=== PATIENT | female | born 1930 | race Caucasian/White ===

== ENCOUNTER 2019-07-14 15:44 | Emergency (ER) | payer MEDICARE, OTHER ==
[~2019-07-14] VITALS: Ht 167.6 cm; Wt 56.8 kg
[2019-07-14 16:03] VITALS: BP 170/94
[2019-07-14] MEDS ORDERED: LIDODERM 5% PATC1 EA TP (16:55)
[2019-07-14 17:10] VITALS: PULSE 62; TEMP 98.2
== END 2019-07-14 17:20 | disposition home or self-care (01) ==
LOC: COL.ER 15:44
DX: S20.212A Contusion of left front wall of thorax, initial encounter (principal); W01.0XXA Fall on same level from slipping, tripping and stumbling without subsequent striking against object, initial encounter; Y92.002 Bathroom of unspecified non-institutional (private) residence as the place of occurrence of the external cause
CPT/HCPCS: A9284

== ENCOUNTER → 2021-03-01 | Outpatient (CLI) | payer MEDICARE, OTHER ==
[~2021-03-01] MED LIST: LIDODERM 5% PATC1 EA TP
[2021-03-01 11:49] LABS: HEMOGLOBIN 11.3 g/dl (12.5-16.0); MEAN CELL VOLUME 92 fl (80.0-100.0); MEAN CORPUSCULAR HEMOGLOBIN 29 pg (27.0-31.0); MEAN CORPUSCULAR HGB CONC 32 g/dl (33.0-37.0); MEAN PLATELET VOLUME 9.3 fl (7.4-10.4); PLATELET COUNT 325 K/mm3 (130-400); RED BLOOD COUNT 3.88 M/mm3 (4.10-5.30); REDCELL DISTRIBUTION WIDTH-CV 14.1 % (11.5-14.5)
[2021-03-01 11:51] LABS: HEMATOCRIT 35.8 % (37.0-47.0)
[2021-03-01 11:55] LABS: ALBUMIN 3.6 gm/dL (3.5-5.0); CALCIUM 9.3 mg/dL (8.4-10.2); CREATININE, serum 0.68 (0.52-1.25); POTASSIUM 4.5 mmol/L (3.4-5.0); TOTAL PROTEIN 6.8 gm/dL (6.4-8.2)
[2021-03-01 12:07] LABS: BILIRUBIN UNCONJUGATED 0.4 mg/dL (0.0-1.1); BILIRUBIN,TOTAL 0.5 mg/dL (0.0-1.0)
== END ==
LOC: COL.LAB 10:51
PROVIDERS: Internal Medicine
DX: R07.9 Chest pain, unspecified (principal); R10.9 Unspecified abdominal pain; R10.84 Generalized abdominal pain; R06.2 Wheezing

== ENCOUNTER 2021-05-11 07:37 | Day surgery (SDC) | payer MEDICARE, OTHER ==
[~2021-05-11] VITALS: Ht 157.5 cm; Wt 49.3 kg
[2021-05-11 08:19] VITALS: BP 186/74; PULSE 68; TEMP 98.6
--- NOTE | 2021-05-11 08:23 | NUR ---
Patient's son, Ted, has a copy of her negative covid19 test result on his phone, which he shows to the nursing staff.
--- NOTE | 2021-05-11 08:27 | NUR ---
BP is rechecked after the patient has some time to relax. BP reads 173/64.
[2021-05-11 09:40] VITALS: BP 167/100; PULSE 73; TEMP 98.2
--- NOTE | 2021-05-11 09:40 | NUR ---
Patient [place] [facility] [place] [facility] [place]. She is alert and oriented, sitting up in bed. PIV to TKO. Monitoring is applied - BP is elevated. Patient states she needs to void. She ambulates with steady gait to the restroom, voids large amount of clear/yellow urine. Upon returning to room, patient is offered and receives water and a muffin to eat.
[2021-05-11 09:55] VITALS: BP 169/72; PULSE 56
--- NOTE | 2021-05-11 09:55 | NUR ---
Patient tolerating PO well. Denies pain, nausea, SOB.
[2021-05-11 10:10] VITALS: BP 174/75; PULSE 66
--- NOTE | 2021-05-11 10:10 | NUR ---
Patient ambulates to the restroom, voids, and returns to room.
--- NOTE | 2021-05-11 10:40 | NUR ---
Patient has met discharge criteria. Discharge instructions are discussed with the patient and her son; they both deny questions. PIV is removed with catheter intact and hemostasis achieved. Staff assists the patient to change to her clothing. She is escorted to the exit via wheelchair. She is discharged to the care of her son, who drives her home in a private vehicle at 1040.
[2021-05-11 11:36] VITALS: BP 125/67; PULSE 58
== END 2021-05-11 10:40 | disposition home or self-care (01) ==
LOC: SDCO 07:37
DX: R05 Cough (principal); J47.9 Bronchiectasis, uncomplicated; R91.1 Solitary pulmonary nodule; M19.90 Unspecified osteoarthritis, unspecified site
CPT/HCPCS: J2704; J7120